=== PATIENT | male | born 1975 | race Two or more races ===

== ENCOUNTER 2024-02-10 14:38 | Emergency (ER) | payer OTHER, SELFPAY ==
[2024-02-10 14:38] VITALS: BMI 27.3
[2024-02-10 15:22] VITALS: BP 149/79; PULSE 69; RESP 18; TEMP 36.6; O2SAT 97; BMI 26.9
--- NOTE | 2024-02-10 15:40 | XR_ITS ---
Examination: Wrist, left 3 views Technique: Wrist AP, oblique, lateral 3 views Date and time of exam: February 02, 2024 1600 hrs. Indications: Right wrist pain after falling today with injury to the wrist Findings: No acute fracture No dislocation No foreign body Impression: No acute fracture
--- NOTE | 2024-02-10 15:40 | XR_ITS ---
Examination: Hand, right 3 views Technique: Hand AP, oblique, lateral 3 views Date and time of exam: February 02, 2024 1600 hrs. Indications: Patient fell today with injury to the hand, hand pain Findings: No acute fracture No dislocation No foreign body Impression: No acute fracture
--- NOTE | 2024-02-10 15:40 | PD.EDRME ---
Rapid Medical Screening Exam RME Arrival date/time: 02/10/24 14:38 48-year-old male presents emergency department complaining of right hand and wrist pain after suffering ground-level fall that occurred yesterday at work. Chief Complaint: Hand/Wrist Problems Time Seen by Provider: 02/10/24 15:35 Vital signs: Vital Signs Temperature 97.8 F 02/10/24 15:22 Pulse Rate 69 02/10/24 15:22 Respiratory Rate 18 02/10/24 15:22 Blood Pressure 149/79 H 02/10/24 15:22 Pulse Oximetry (%) 97 02/10/24 15:22 Oxygen Delivery Method Room Air 02/10/24 15:22 Vital signs reviewed by provider: Yes
[2024-02-10] MEDS: KETOROLAC INJ 60 MG/2 ML VIAL 30 MG IM (15:54)
[2024-02-10 16:52] VITALS: BP 153/74; PULSE 75; RESP 17; TEMP 36.7; O2SAT 98
[2024-02-10 20:05] VITALS: BP 142/72; PULSE 70; RESP 18; TEMP 37.1; O2SAT 98
--- NOTE | 2024-02-10 20:30 | PD.EDHAND ---
Upper Extremity Injury RME/HPI General Chief Complaint: Hand/Wrist Problems Stated Complaint: RIGHT HAND INJURY AT WORK TODAY Time Seen by Provider: 02/10/24 15:35 Arrival date/time: 02/10/24 14:38 RME / HPI RME / HPI narrative: 02/10/24 14:38 48-year-old male presents emergency department complaining of right hand and wrist pain after suffering ground-level fall that occurred yesterday at work. ----- Dr. Ruggiero?s Main ED Evaluation: 48yo male presents to the ED for a chief complaint of right hand pain x today. 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 He denies any head strikes or loss of consciousness. Denies any other injuries. No known allergies. Related Data Previous Rx's ?Medication ?Instructions ?Recorded acetaminophen 500 mg tablet 1,000 mg (2 x 500 mg) PO Q6H PRN 02/10/24 pain 10 days #30 tabs ibuprofen 600 mg tablet 600 mg PO Q6H PRN pain #30 tabs 02/10/24 Allergies Allergy/AdvReac Type Severity Reaction Status Date / Time No Known Allergies Allergy Verified 02/10/24 14:41 Review of Systems Review of Systems Systems Reviewed: All systems reviewed, normal except as documented Narrative Review of Systems: Gen: No fever, no chills, no weight loss EYES: No discharge, no visual changes, no pain HEENT: No ear pain, no congestion, no sore throat PULM: No shortness of breath, no cough, no congestion CV: No chest pain, no dyspnea on exertion, no palpitations GI: No nausea, no vomiting, no diarrhea, no pain, no constipation : No frequency, no urgency, no dysuria Musc/skel: + right hand pain, no back pain Skin: No rash. Warm and dry. Psyc: No hallucinations, no depression Heme/Lymph: No easy bleeding or bruising tendencies Neuro: No weakness, no headache Past Medical History Social History SMOKING STATUS: Never smoker ED Exam Narrative Physical exam: GENERAL APPEARANCE: alert and oriented x 4, well-developed, well-nourished, no acute distress VITALS: All vitals were reviewed and the pulse ox is % on room air, which is normal according to my interpretation. HEENT: Normocephalic, atraumatic; pupils equal, round, reactive to light; EOMI; mucous membranes pink, moist; oropharynx clear NECK: Supple LUNGS: CTABL; no wheezes, no rales, no rhonchi HEART: Regular rate, regular rhythm; normal S1, S2; no murmurs ABDOMEN: non distended; normal BS; soft, no tenderness, no guarding, no rebound; no masses, no organomegaly, no hernia BACK: no CVA tenderness EXTREMITIES: generalized swelling of the right hand with ecchymosis to the palm, normal cap refill, sensations, and motor functions, no snuffbox tenderness; no edema NEUROLOGIC: awake; alert and oriented x4; cranial nerves II-XII grossly intact; no focal sensory or motor deficits PSYCHIATRIC: appropriate mood and affect SKIN: warm, dry, normal color; no rashes Course Quality Measures none Orders Category Date Time Status Miscellaneous Nursing Order NOW Care 02/10/24 20:40 Completed XR hand comp RT min 3V Stat Exams 02/10/24 15:40 Completed XR wrist comp RT min 3V Stat Exams 02/10/24 15:40 Completed Ketorolac Inj [Toradol Inj] Med 02/10/24 15:40 Discontinued 30 mg IM X1 ONE Vital Signs Vital signs: Vital Signs Temperature 97.8 F 02/10/24 15:22 Pulse Rate 69 02/10/24 15:22 Respiratory Rate 18 02/10/24 15:22 Blood Pressure 149/79 H 02/10/24 15:22 Pulse Oximetry (%) 97 02/10/24 15:22 Oxygen Delivery Method Room Air 02/10/24 15:22 Extremity Injury MDM Narrative MDM Narrative:: Scribe Attestation: 02/10/24 - Mandi Marroquin am scribing for and in the presence of Dr. Ruggiero. Patient data External records reviewed:: [facility] previous records (Per chart review, patient has no previous ED visits or admissions to this facility.) Clinical information provided by:: patient Social determinants that could affect healthcare access:: none Patient has the following chronic illnesses:: none How is presenting disease/condition affected by chronic disease/condition?: no chronic disease Evaluation data The following diagnostics were reviewed and interpreted by me:: radiology exam(s) Lab and/or radiology exams considered but not ordered:: none Interpretation Summary: [facility] Report Signed Patient: LASHAWN RAMIRES. Record#: [id number] Birthdate: 1975 Age/Sex: 48 / M Location: [facility] Attending Dr: Ordering Physician: Shar Park (FNP) Date of Service: 02/10/24 Procedure(s): XR hand comp RT min 3V Accession Number(s): [id number] cc: Musa York MD; Iván Tompkins MD; Shar Park (FNP)~ Examination: Hand, right 3 views Technique: Hand AP, oblique, lateral 3 views Date and time of exam: February 02, 2024 1600 hrs. Indications: Patient fell today with injury to the hand, hand pain Findings: No acute fracture No dislocation No foreign body Impression: No acute fracture Dictated By: Iván Tompkins MD Signed By: <Electronically signed by Iván Tompkins MD in [place]> 02/10/241735 ------- [facility] Report Signed Patient: LASHAWN RAMIRES. Record#: [id number] Birthdate: 1975 Age/Sex: 48 / M Location: [facility] Attending Dr: Ordering Physician: Shar Park (FNP) Date of Service: 02/10/24 Procedure(s): XR wrist comp RT min 3V Accession Number(s): [id number] cc: Musa York MD; Iván Tompkins MD; Shar Park (FNP)~ Examination: Wrist, left 3 views Technique: Wrist AP, oblique, lateral 3 views Date and time of exam: February 02, 2024 1600 hrs. Indications: Right wrist pain after falling today with injury to the wrist Findings: No acute fracture No dislocation No foreign body Impression: No acute fracture Dictated By: Iván Tompkins MD Signed By: <Electronically signed by Iván Tompkins MD in [place]> 02/10/24 1734 Medications / Prescriptions Medications or Prescriptions considered but not ordered:: none Medication administrations:: Medication Administration History Discontinued Medications Ketorolac Tromethamine (Ketorolac Inj 60 Mg/2 Ml Vial) 30 mg IM X1 ONE Stop: 02/10/24 15:41 Last Admin: 02/10/24 15:54 Dose: 30 mg Documented By: [facility] see above Consultations Consultation(s) initiated? (list below): No Diagnosis Upper Extremity Injury Differential Diagnosis: other (fracture, dislocation, contusion, sprain) Most likely diagnosis given after review of the tests above:: see below Admission Indicated Admission indicated?: not indicated Admission Request Was there a request for admission?: No Disposition Plan Disposition Plan: Discharge Discharge Attestation Discharge Attestation: The patient and all family members were given an opportunity to ask questions and understood the discharge instructions. Discharge instructions specifically effects, indications for sooner follow up or return to the emergency department, and the expected course of current diagnosis. Patient condition: Stable Discharge Plan Plan Patient Disposition: HOME (Self Care) Disposition Comment: Stable for discharge Patient condition on transfer: Stable Prescriptions/Referrals Prescriptions/Med Rec: New ibuprofen 600 mg tablet 600 mg PO Q6H PRN (Reason: pain) Qty: 30 0RF acetaminophen 500 mg tablet 1,000 mg PO Q6H PRN (Reason: pain) 10 Days Qty: 30 0RF Referrals: Musa York MD [Primary Care Provider] - In 1 week Problem List Clinical Impression: Contusion of hand Patient/Caregiver Discharge Instructions Discharge Activity: activity as tolerated Education Materials: ED Hand Contusion Additional Instructions: Please return to the emergency department if you notice any worsening or if you are not getting better within the next several days. You should follow-up with your primary care doctor within the next several days Take the acetaminophen and the ibuprofen every 6 hours for pain please Print Language: Yoruba Stand Alone Forms: Erika Award Info., Patient Portal Info Letter
== END 2024-02-10 20:52 | disposition home or self-care (01) ==
PROVIDERS: Emergency Provider Emergency Medicine; PCP Family Medicine
DX: S60.221A Contusion of right hand, initial encounter (principal); W18.30XA Fall on same level, unspecified, initial encounter; Y99.0 Civilian activity done for income or pay
CPT/HCPCS: 73110; 73130; 96372; 99283; J1885